=== PATIENT | female | born 1955 | race Caucasian/White ===

== ENCOUNTER → 2018-08-10 | Outpatient (CLI) | payer BC ==
--- NOTE | 2018-08-10 16:34 | XR ---
Lumbosacral spine HISTORY: Pain in tailbone, trauma and pain 5 views of lumbosacral spine There is a levoscoliosis centered at L3. Bone mineralization is reduced. Lumbar vertebral bodies show preserved height. There is multilevel spondylosis. Loss of disc height present at the intervertebral levels. Sclerosis present in the posterior elements of the lower lumbar spine. Vascular calcificatio ns noted incidentally. IMPRESSION: Degenerative disc disease, facet arthropathy, scoliosis and osteopenia. No acute fracture or subluxation.
== END ==
LOC: RADXRYALE 14:33
PROVIDERS: ATTEND Physician Assistant Medical
DX: M51.36 Other intervertebral disc degeneration, lumbar region (principal); M46.96 Unspecified inflammatory spondylopathy, lumbar region; M41.86 Other forms of scoliosis, lumbar region; M85.88 Other specified disorders of bone density and structure, other site
CPT/HCPCS: 72110